=== PATIENT | female | born 1945 | race Asian ===

== ENCOUNTER 2023-12-18 14:28 | Emergency (ER) | payer OTHER, MEDICARE ==
[~2023-12-18] VITALS: Ht 152.4 cm; Wt 59.0 kg
[2023-12-18 14:30] VITALS: BP_SYST 169; PULSE 69; RESP 19; TEMP 98.7; O2SAT 97
[2023-12-18 15:25] VITALS: BP_SYST 156; PULSE 61; RESP 18; TEMP 98.2; O2SAT 96
[2023-12-18] MEDS ORDERED: SILV20CR13 TP (15:56)
== END 2023-12-18 16:05 | disposition home or self-care (01) ==
LOC: SED 14:28
DX: T20.17XA Burn of first degree of neck, initial encounter (principal); V89.2XXA Person injured in unspecified motor-vehicle accident, traffic, initial encounter; W22.19XA Striking against or struck by other automobile airbag, initial encounter; Y93.89 Activity, other specified; Y92.89 Other specified places as the place of occurrence of the external cause; Y99.8 Other external cause status
CPT/HCPCS: 99283